=== PATIENT | female | born 1990 | race African-American/Black ===

== ENCOUNTER 2016-06-11 19:41 | Emergency (ER) | payer OTHER ==
[~2016-06-11] VITALS: Ht 167.6 cm; Wt 143.7 kg
[2016-06-11] MEDS ORDERED: PEN-VEE K,VEET500 MG PO (22:05)
[2016-06-11] MEDS ORDERED: TYLENOL WITH C1 EACH PO (22:05)
[2016-06-11 22:15] VITALS: BP 141/111
== END 2016-06-11 22:21 | disposition home or self-care (01) ==
LOC: EXP 19:41 → EME 19:41 → EXP 22:21
DX: J02.0 Streptococcal pharyngitis (principal); R05 Cough
CPT/HCPCS: 87651 90; 99281; 99283

== ENCOUNTER 2017-02-01 13:34 | Emergency (ER) | payer OTHER ==
[~2017-02-01] VITALS: Ht 167.6 cm; Wt 140.3 kg
[~2017-02-01 13:34] MED LIST: PEN-VEE K,VEET500 MG PO; TYLENOL WITH C1 EACH PO
[2017-02-01 13:37] VITALS: BP 133/93
[2017-02-01] MEDS ORDERED: INDOCIN50 MG PO (15:19)
[2017-02-01] MEDS ORDERED: FLEXERIL5 MG PO (15:19)
== END 2017-02-01 15:51 | disposition home or self-care (01) ==
LOC: EME 13:34
DX: M43.6 Torticollis (principal)
CPT/HCPCS: 99281; 99283

== ENCOUNTER 2017-03-30 11:58 | Emergency (ER) | payer SELFPAY ==
[~2017-03-30] VITALS: Ht 167.6 cm; Wt 142.8 kg
[~2017-03-30 11:58] MED LIST changes: +FLEXERIL5 MG PO; +INDOCIN50 MG PO
[2017-03-30] MEDS ORDERED: PEN-VEE K,VEET500 MG PO (12:46)
[2017-03-30] MEDS ORDERED: ULTRAM50 MG PO (12:46)
[2017-03-30] MEDS ORDERED: MOTRIN800 MG PO (12:46)
[2017-03-30 13:36] VITALS: BP 121/81
== END 2017-03-30 13:38 | disposition home or self-care (01) ==
LOC: EME 11:58
DX: K02.9 Dental caries, unspecified (principal)
CPT/HCPCS: 99281; 99284

== ENCOUNTER 2017-09-11 02:09 | Emergency (ER) | payer OTHER ==
[~2017-09-11] VITALS: Ht 167.6 cm; Wt 130.0 kg
[~2017-09-11 02:09] MED LIST changes: +MOTRIN800 MG PO; +ULTRAM50 MG PO
[2017-09-11 03:11] LABS: HEMATOCRIT 36.9 % (36.0-46.0); HEMOGLOBIN 12.2 G/DL (11.9-15.5); MCH 26.9 PG (29.0-34.0); MCHC 33.1 G/DL (30.0-36.0); MCV 81.3 FL (83-99); PLATELET COUNT 371 K/uL (156-360); RBC DIS.WIDTH-CV 14.7 % (11.8-14.6); RBC DIS.WIDTH-SD 43.5 % (39-53); RED BLOOD COUNT 4.54 M/uL (3.80-5.20); WHITE BLOOD COUNT 8.5 K/uL (4.1-10.2)
[2017-09-11 03:25] LABS: CHLORIDE 105 mEq/L (99-109); POTASSIUM 3.7 mEq/L (3.7-5.4); SODIUM 139 mEq/L (136-147)
[2017-09-11 03:27] LABS: GLUCOSE 80 mg/dL (70-99)
[2017-09-11 03:31] LABS: CREATININE 0.8 mg/dL (0.6-1.3); GFR ESTIMATE (CALCULATED) > 59 mL/min/
[2017-09-11 03:32] LABS: TROP-I INTERPRETATION NEGATIVE; TROPONIN-I < 0.01 ng/mL (0.0-0.30); UREA NITROGEN (BUN) 14 mg/dL (9-23)
[2017-09-11 04:03] VITALS: BP 123/89
== END 2017-09-11 04:19 | disposition home or self-care (01) ==
LOC: EME 02:09
DX: R00.2 Palpitations (principal); I49.3 Ventricular premature depolarization
CPT/HCPCS: 71046; 80048; 82310; 83520 90; 83735; 84443; 84484; 85027; 93005; 99281; 99284